=== PATIENT | female | born 1980 | race Caucasian/White ===

== ENCOUNTER 2018-02-06 18:25 | Emergency (ER) | payer SELFPAY ==
[~2018-02-06] VITALS: Ht 162.6 cm; Wt 40.0 kg
[2018-02-06 20:00] LABS: BASOPHILS % 0.6 % (0.0-2.0); EOSINOPHILS % 0.7 % (0.0-5.0); HEMOGLOBIN. 14.1 g/dL (12.0-16.0); LYMPHOCYTES % 27.3 % (20.0-50.0); MEAN CORPUSCULAR HEMOGLOBIN 30.6 pg (28.0-32.0); MEAN CORPUSCULAR VOLUME 91.1 fL (81.0-99.0); MEAN PLATELET VOLUME 8.6 fl (7.4-10.4); MONOCYTES % 5.3 % (2.0-8.0); NEUTROPHILS % 66.1 % (40.0-76.0); PLATELET 250 x1000/uL (130-400); RED BLOOD CELL COUNT 4.61 mill/uL (4.2-5.4); RED CELL DISTRIBUTION WIDTH 13.2 % (11.6-14.6)
[2018-02-06 20:03] LABS: CHLORIDE 106 mEq/L (98-107)
[2018-02-06 20:26] LABS: HCG SCREEN NEGATIVE
[2018-02-06 21:21] VITALS: BP 110/65
== END 2018-02-06 21:23 | disposition home or self-care (01) ==
LOC: ER 18:25
DX: R53.1 Weakness (principal); R53.83 Other fatigue; R07.89 Other chest pain; Z85.79 Personal history of other malignant neoplasms of lymphoid, hematopoietic and related tissues; R03.0 Elevated blood-pressure reading, without diagnosis of hypertension; Z88.0 Allergy status to penicillin
CPT/HCPCS: 36415; 71045; 81025; 83880; 84484; 84703; 85379; 93005; 99285